=== PATIENT | male | born 1955 | race Caucasian/White ===

== ENCOUNTER → 2017-07-10 | Outpatient (CLI) | payer MEDICARE | END | disposition disaster alternative care site (69) | LOC: GAMB 21:01 | DX: R10.30 Lower abdominal pain, unspecified (principal); R07.9 Chest pain, unspecified; M25.511 Pain in right shoulder; M54.6 Pain in thoracic spine; Z45.2 Encounter for adjustment and management of vascular access device; Z95.818 Presence of other cardiac implants and grafts; Z79.82 Long term (current) use of aspirin | CPT/HCPCS: A0425; A0427; J3010 ==